=== PATIENT | male | born 1995 | race African-American/Black ===

== ENCOUNTER 2018-08-24 21:15 | Emergency (ER) | payer SELFPAY ==
--- NOTE | 2018-08-25 00:21 | ER Document Report ---
ED Medical Screen (RME) - General Chief Complaint: Chest Pain Stated Complaint: CHEST PAIN Time Seen by Provider: 08/25/18 00:18 Primary Care Provider: SALVADOR CRAWLEY [Primary Care Provider] - Follow up as needed Notes: 23-year-old healthy male presents to the emergency department for right-sided sharp chest pain x2 days. He states that the pain comes in waves and will get so severe that he gets dizzy and lightheaded. Patient is a housecalls nurse by trade. No history of sudden in the family. No fevers or recent illness, no shortness of breath, no nausea or vomiting, no abdominal pain. EXAM: Well-appearing in no acute distress, lungs are clear to auscultation in all m[place], regular cardiac rate and rhythm with no murmurs, reproducible chest wall pain when palpating the right pectoralis major I have greeted and performed a rapid initial assessment of this patient. A comprehensive ED assessment and evaluation of the patient, analysis of test results and completion of medical decision making process will be conducted by an additional ED providers. TRAVEL OUTSIDE OF THE [place] IN LAST 30 DAYS: No - Related Data Allergies/Adverse Reactions: No Known Drug Allergies Allergy (Verified 08/24/18 21:30) Past Medical History - Immunizations Immunizations up to date: Yes Physical Exam - Vital signs Vitals: Temp Pulse Resp BP Pulse Ox 98 F 68 18 136/65 H 98 08/24/18 21:29 08/24/18 21:29 08/24/18 21:29 08/24/18 21:29 08/24/18 21:29 Course - Vital Signs Vital signs: Temp Pulse Resp BP Pulse Ox 98 F 68 18 136/65 H 98 08/24/18 21:29 08/24/18 21:29 08/24/18 21:29 08/24/18 21:29 08/24/18 21:29 Doctor's Discharge - Discharge Referrals: DENISA,SALVADOR [Primary Care Provider] - Follow up as needed
--- NOTE | 2018-08-25 01:10 | RADIOLOGY REPORT (SQ) ---
EXAM DESCRIPTION: XR CHEST 2 VIEWS COMPLETED DATE/TME: 08/25/2018 00:19 CLINICAL HISTORY: 23 years Male R side chest pain COMPARISON: 03/19/2011 FINDINGS: The cardiomediastinal silhouette appears unremarkable. No consolidating infiltrates or pleural effusions. No pneumothorax. IMPRESSION: No acute abnormality is identified.
[2018-08-25 02:22] LABS: ANION GAP 12 (5-19); BLOOD UREA NITROGEN 16 mg/dL (7-20); CALCIUM 9.3 mg/dL (8.4-10.2); CARBON DIOXIDE 24 mmol/L (22-30); CHLORIDE 107 mmol/L (98-107); GLUCOSE 94 mg/dL (75-110); SODIUM 143.3 mmol/L (137-145)
[2018-08-25] MEDS ORDERED: KETOROLAC TROMETHAMINE 60 MG/2 ML SDV IM ONE (02:54)
--- NOTE | 2018-08-25 02:55 | ER Document Report ---
ED General - General Chief Complaint: Chest Pain Stated Complaint: CHEST PAIN Time Seen by Provider: 08/25/18 00:18 Primary Care Provider: SALVADOR CRAWLEY [NO LOCAL MD] - Follow up as needed Notes: Patient is a 23-year-old male without chronic medical problems who presents with 36 hours of intermittent right-sided chest pain. Describes as being intermittent, stabbing, aching discomfort to the right chest. States the pain seems to be worsened by movement of the arm or chest wall. Nothing seems to improve the pain although he has not tried anything for relief. Denies history of similar symptoms in the past. Denies pain at the time of my assessment. Denies any associated nausea, vomiting, diaphoresis or shortness of breath. No pleuritic pain. No history of DVT or pulmonary embolus. Denies any coronary artery disease history nor family history of early cardiac disease. States that he had a mild headache earlier but this has since resolved. TRAVEL OUTSIDE OF THE [place] IN LAST 30 DAYS: No - Related Data Allergies/Adverse Reactions: No Known Drug Allergies Allergy (Verified 08/24/18 21:30) Past Medical History - General Information source: Patient - Social History Smoking Status: Never Smoker Chew tobacco use (# tins/day): No Frequency of alcohol use: None Drug Abuse: None Lives with: Family Family History: Reviewed & Not Pertinent Patient has suicidal ideation: No Patient has homicidal ideation: No Renal/ Medical History: Denies: Hx Peritoneal Dialysis - Immunizations Immunizations up to date: Yes Review of Systems - Review of Systems Notes: Constitutional: Negative for fever. HENT: Negative for sore throat. Eyes: Negative for visual changes. Cardiovascular: Positive for chest pain. Respiratory: Negative for shortness of breath. Gastrointestinal: Negative for abdominal pain, vomiting or diarrhea. Genitourinary: Negative for dysuria. Musculoskeletal: Negative for back pain. Skin: Negative for rash. Neurological: Negative for headaches, weakness or numbness. 10 point ROS negative except as marked above and in HPI. Physical Exam - Vital signs Vitals: Temp Pulse Resp BP Pulse Ox 98 F 68 18 136/65 H 98 08/24/18 21:29 08/24/18 21:29 08/24/18 21:29 08/24/18 21:29 08/24/18 21:29 Interpretation: Normal Notes: PHYSICAL EXAMINATION: GENERAL: Well-appearing, well-nourished and in no acute distress. HEAD: Atraumatic, normocephalic. EYES: Pupils equal round and reactive to light, extraocular movements intact, sclera anicteric, conjunctiva are normal. ENT: nares patent, oropharynx clear without exudates. Moist mucous membranes. NECK: Normal range of motion, supple without lymphadenopathy LUNGS: Breath sounds clear to auscultation bilaterally and equal. No wheezes rales or rhonchi. HEART: Regular rate and rhythm without murmurs Chest wall: Pain on palpation of the right lateral chest wall ABDOMEN: Soft, nontender, normoactive bowel sounds. No guarding, no rebound. No masses appreciated. EXTREMITIES: Normal range of motion, no pitting or edema. No cyanosis. NEUROLOGICAL: No focal neurological deficits. Moves all extremities spontaneo usly and on command. PSYCH: Normal mood, normal affect. SKIN: Warm, Dry, normal turgor, no rashes or lesions noted. Course - Re-evaluation Re-evalutation: 08/25/18 02:52 Presentation of chest pain in an otherwise well appearing patient. Low clinical suspicion for ACS given clinical history, exam, EKG without ST elevations or dep ressions, and negative initial troponin. HEART score less than or equal to 3. PE also seems unlikely given clinical history, absence of tachycardia or dyspnea. Patient is PERC criteria negative. CXR without evidence of pneumothorax or pneumonia. No widened mediastinum. Aortic dissection also seems unlikely given history, symmetric pulses, CXR, and vitals. Patient's pain is reproducible on exam, has been ongoing for several days. I do not believe serial cardiac enzymes are indicated given the low probability of ACS and clinical history. At this time will discharge with return precautions and follow-up recommendations. Verbal discharge instructions given a the bedside and opportunity for questions given. Medication warnings reviewed. Patient is in agreement with this plan and has verbalized understanding of return precautions and the need for primary care follow-up in the next 24-72 hours. - Vital Signs Vital signs: Temp Pulse Resp BP Pulse Ox 98 F 51 L 18 120/47 L 98 08/24/18 21:29 08/25/18 03:07 08/24/18 21:29 08/25/18 03:07 08/25/18 03:07 - Laboratory Result Diagrams: 08/25/18 01:40 - Diagnostic Test Radiology reviewed: Image reviewed, Reports reviewed - EKG Interpretation by Me Additional EKG results interpreted by me: 08/25/18 02:54 Sinus rhythm, rate 58. Early re-pole ST changes. QTc 405. Discharge - Discharge Clinical Impression: Chest pain Qualifiers: Chest pain type: unspecified Qualified Code(s): R07.9 - Chest pain, unspecified Condition: Good Disposition: HOME, SELF-CARE Additional Instructions: You were seen today for chest pain. The exact cause of your pain is unclear. However, based on your cardiac enzyme testing, chest x-ray, and EKG it does not appear that it is from an immediately life-threatening cause at this time. Although your testing here is normal is critical that you follow-up with your primary care physician for continued evaluation of this chest pain. You may take ibuprofen 600 mg every 6 hours as needed for chest discomfort. Please return to emergency department immediately if you have worsening of your chest pain, shortness of breath, vomiting, become unable to exert yourself due to pain or difficulty breathing, you pass out, or have any pain that radiates into your arms, jaw, or back. Please also return if you have any additional symptoms that are concerning to you. Forms: Return to Work Referrals: LOCALMD,NO [NO LOCAL MD] - Follow up as needed
[2018-08-25 03:10] VITALS: BP 120/47
--- NOTE | 2018-08-25 22:17 | EKG REPORT ---
SEVERITY:- NORMAL ECG - SINUS RHYTHM ST ELEV, PROBABLE NORMAL EARLY REPOL PATTERN : Confirmed by: Maria C Warren MD 25-Aug-2018 22:16:33
== END 2018-08-25 03:10 | disposition home or self-care (01) ==
LOC: ER 21:15
DX: R07.9 Chest pain, unspecified (principal)
CPT/HCPCS: 93005; 99285; 96372; 36415; 80048; 84484; 71046; 93010; J1885